=== PATIENT | male | born 1995 | race Caucasian/White ===

== ENCOUNTER → 2018-06-16 09:42 | Outpatient (CLI) | payer OTHER ==
--- NOTE | 2018-06-22 15:26 | ST ---
PATIENT:KANCHAN JOSEPH MEDICAL RECORD: [id number] SEX: M LOCATION:[facility] ORDER #: ADMISSION DATE: 06/16/18 AGE OF PATIENT: 23 REFERRING PHYSICIAN: INTERPRETING PHYSICIAN: JAVI CLIFTON MD DATE OF SERVICE: 06/16/2018 Treadmill Stress Test Baseline ECG is normal. Exercised for 10 minutes on Jaime protocol. Maximum heart rate 179 beats per minute, greater than 85% maximum predicted. No ECG change in ischemia. No symptoms of ischemia. Normal blood pressure response to exercise. No arrhythmia noted. Good exercise tolerance for age. TRANSINT:[id number] Voice Confirmation ID: [id number] DOCUMENT ID: [id number] JAVI CLIFTON MD at 1526 CC: [id number] DICTATION DATE: 06/18/18 1527 BUSINESS SERVICES VICE PRESIDENT: 06/18/18 2301 [facility] CLI 06/16/[address] [address]
== END | disposition home or self-care (01) ==
LOC: D.HCCARDIO 09:42
DX: I49.3 Ventricular premature depolarization (principal)